=== PATIENT | female | born 1930 | race Caucasian/White ===

== ENCOUNTER 2017-09-12 18:36 | Inpatient (IN) | payer MEDICARE, OTHER ==
[~2017-09-12] VITALS: Ht 162.6 cm; Wt 77.1 kg
[2017-09-12 19:33] LABS: BASOPHILS % (AUTO) 0.9 % (0.0-5.0); HEMATOCRIT 39.1 % (36-48); LYMPHOCYTES % (AUTO) 9.9 % (21.0-51.0); MEAN CORPUSCULAR HEMOGLOBIN 31.5 pg (27.0-33.0); MEAN CORPUSCULAR HGB CONC 34.3 g/dL (32.0-36.0); MEAN CORPUSCULAR VOLUME 91.8 fL (79-99); MONOCYTES % (AUTO) 11.4 % (3.0-13.0); NEUTROPHILS % (AUTO) 76.8 % (40.0-77.0); PLATELET COUNT (AUTO) 275 K/uL (130-400); RED BLOOD CELL COUNT(AUTO) 4.26 MIL/uL (4.00-5.50); RED CELL DISTRIBUTION WIDTH 14.2 % (11.0-15.5); WHITE BLOOD COUNT (AUTO) 9.6 K/uL (4.8-10.8)
[2017-09-12 19:49] LABS: POTASSIUM 3.6 mmol/L (3.5-5.1)
[2017-09-12 20:03] LABS: ALBUMIN 3.5 g/dL (3.5-5.0); BILIRUBIN,TOTAL 0.9 mg/dL (0.2-1.0); CREATININE 0.8 mg/dL (0.5-1.5); TOTAL PROTEIN, SERUM 7.4 g/dL (6.0-8.3)
[2017-09-12 20:18] LABS: APPEARANCE,URINE CLOUDY (CLEAR); BILIRUBIN,URINE NEGATIVE (NEGATIVE); COLOR,URINE YELLOW (YELLOW); GLUCOSE, URINE (UA) 250 mg/dL (NEGATIVE); KETONES,URINE 5 mg/dL (NEGATIVE); LEUKOCYTE ESTERASE ,URINE MODERATE (NEGATIVE); NITRATE,URINE POSITIVE (NEGATIVE); OCCULT BLOOD,URINE MODERATE (NEGATIVE); PH,URINE 5.5 (5.0-8.0); PROTEIN,URINE 100 (NEGATIVE)
[2017-09-12 20:35] LABS: WBC,URINE 51-100 /HPF (0-1)
[2017-09-12 20:36] LABS: BACTERIA,URINE Moderate /HPF (None Seen)
[2017-09-12 20:37] LABS: SQUAMOUS EPITHELIAL CELL,UR Rare /LPF (0-2)
[2017-09-12] MEDS ORDERED: CEFTRIAXONE SODIUM 1 GM ONE (21:48)
[2017-09-13] VITALS (8 sets, daily range): BP systolic 90–128; BP diastolic 41–71
[2017-09-13] MEDS ORDERED: SODIUM CHLORIDE 0.9% 1000ML 1,000 ML IV ONE (00:34)
[2017-09-13] MEDS ORDERED: LIDOCAINE HCL-MPF 1% 2ML VIAL IVP PRN (01:45)
[2017-09-13] MEDS ORDERED: ONDANSETRON HCL 4 MG/2 ML VIAL IV PRN (01:45)
[2017-09-13] MEDS ORDERED: POTASSIUM CHLORIDE 20MEQ/100ML 100 ML IV PRN (01:45)
[2017-09-13] MEDS ORDERED: LACTULOSE 20 GM/30 ML UDCUP PO PRN (01:45)
[2017-09-13] MEDS ORDERED: HYDRALAZINE HCL 20 MG/ML VIAL IV PRN (01:45)
[2017-09-13] MEDS ORDERED: DiphenhydrAMINE HCL 50 MG/ML VIAL IV PRN (01:45)
[2017-09-13] MEDS ORDERED: DEXTROSE 50%-WATER 50 ML DISP.SYRIN IV PRN (01:45)
[2017-09-13] MEDS ORDERED: GLUCAGON 1MG KIT 1 MG ML IM PRN (01:45)
[2017-09-13] MEDS ORDERED: ACETAMINOPHEN 325 MG TAB PO PRN ×2 (01:45)
[2017-09-13] MEDS ORDERED: AMLO10TA2 PO (03:34)
[2017-09-13] MEDS ORDERED: ATOR10TA69 PO (03:34)
[2017-09-13] MEDS ORDERED: LOSA100T29 PO (03:34)
[2017-09-13] MEDS ORDERED: CITA10TA13 PO (03:34)
[2017-09-13] MEDS ORDERED: OXYB5TAB10 PO (03:34)
[2017-09-13] MEDS ORDERED: METO50TA18 PO (03:34)
[2017-09-13] MEDS ORDERED: INSU200I SQ (03:34)
[2017-09-13] MEDS ORDERED: LEVOFLOXACIN 500 MG/D5W 100 ML 100 ML ONE (04:44)
[2017-09-13 04:59] LABS: HEMATOCRIT 37.1 % (36-48); MEAN CORPUSCULAR HEMOGLOBIN 31.8 pg (27.0-33.0); MEAN CORPUSCULAR HGB CONC 34.9 g/dL (32.0-36.0); MEAN CORPUSCULAR VOLUME 90.9 fL (79-99); NUCLEATED RED BLOOD CELLS 2.7 % (0.0-0.19); PLATELET COUNT (AUTO) 275 K/uL (130-400); RED BLOOD CELL COUNT(AUTO) 4.08 MIL/uL (4.00-5.50); RED CELL DISTRIBUTION WIDTH 14.2 % (11.0-15.5); WHITE BLOOD COUNT (AUTO) 12.8 K/uL (4.8-10.8)
[2017-09-13 05:11] LABS: BILIRUBIN,TOTAL 0.9 mg/dL (0.2-1.0); CREATININE 0.8 mg/dL (0.5-1.5); POTASSIUM 3.3 mmol/L (3.5-5.1); TOTAL PROTEIN, SERUM 6.8 g/dL (6.0-8.3)
[2017-09-13 05:41] LABS: B-TYPE NATRIURETIC PEPTIDE 223 pg/mL (0-100)
[2017-09-13] MEDS: IPRATROPIUM 0.5 MG/2.5 ML INH IH SCH ×3 (06:32→18:53)
[2017-09-13] MEDS: POTASSIUM CHLORIDE 20 MEQ ERTAB PO PRN ×3 (07:00→17:58)
[2017-09-13] MEDS: INSULIN HUMULIN R 100 UNIT/ML 3ML SQ SCH ×4 (07:13→20:48)
[2017-09-13] MEDS: FAMOTIDINE 20MG TAB 20 MG TAB PO SCH ×2 (09:45→20:39)
[2017-09-13] MEDS ORDERED: [UNRECOGNIZED DRUG - OTHER] PO SCH (10:15)
[2017-09-13] MEDS: INSULIN LISPRO 100 UNIT/ML 3ML SQ SCH (11:30)
[2017-09-13] MEDS: AMLODIPINE BESYLATE 5 MG TAB PO SCH (12:49)
[2017-09-13] MEDS: OLOPATADINE HCL 0.1% 5ML DROPS OD SCH ×2 (13:11→20:40)
[2017-09-13] MEDS: LORATADINE/PSEUDOEPHED 5/120 MG 1 EACH TAB.SR.12H PO SCH (13:11)
[2017-09-13] MEDS: ATORVASTATIN CALCIUM 10 MG TABLET PO SCH (20:39)
[2017-09-13] MEDS: METOPROLOL TARTRATE 50 MG TAB PO SCH (20:39)
[2017-09-13] MEDS: LORAZEPAM 2 MG/ML 1 ML VIAL IVP PRN (22:06)
[2017-09-14] MEDS ORDERED: LEVOFLOXACIN 500 MG/D5W 100 ML 100 ML IV SCH
[2017-09-14] MEDS: IPRATROPIUM 0.5 MG/2.5 ML INH IH SCH ×4 (01:02→17:05)
[2017-09-14 03:43] VITALS: BP 125/57
[2017-09-14 04:35] LABS: MEAN CORPUSCULAR HEMOGLOBIN 32.1 pg (27.0-33.0); MEAN CORPUSCULAR HGB CONC 35.4 g/dL (32.0-36.0); MEAN CORPUSCULAR VOLUME 90.8 fL (79-99); PLATELET COUNT (AUTO) 258 K/uL (130-400); RED BLOOD CELL COUNT(AUTO) 3.75 MIL/uL (4.00-5.50); RED CELL DISTRIBUTION WIDTH 14.3 % (11.0-15.5); WHITE BLOOD COUNT (AUTO) 8.3 K/uL (4.8-10.8)
[2017-09-14 04:51] LABS: CREATININE 0.7 mg/dL (0.5-1.5); POTASSIUM 3.8 mmol/L (3.5-5.1)
[2017-09-14] MEDS: INSULIN HUMULIN R 100 UNIT/ML 3ML SQ SCH ×5 (06:00→21:00)
[2017-09-14 07:00] VITALS: BP 118/68
[2017-09-14] MEDS ORDERED: CEFTRIAXONE 1GM/D5W 50ML 50 ML IV SCH (09:45)
[2017-09-14] MEDS: OLOPATADINE HCL 0.1% 5ML DROPS OD SCH ×2 (10:13→21:02)
[2017-09-14] MEDS: METOPROLOL TARTRATE 50 MG TAB PO SCH ×2 (10:14→21:01)
[2017-09-14] MEDS: AMLODIPINE BESYLATE 5 MG TAB PO SCH (10:14)
[2017-09-14] MEDS: OXYBUTYNIN CHLORIDE 5 MG TABLET PO SCH (10:14)
[2017-09-14] MEDS: FAMOTIDINE 20MG TAB 20 MG TAB PO SCH ×2 (10:14→21:01)
[2017-09-14] MEDS: CITALOPRAM 20 MG TABLET PO SCH (10:14)
[2017-09-14] MEDS: CEFTRIAXONE SODIUM 1 GM IVP SCH (10:23)
[2017-09-14 11:00] VITALS: BP 121/70
[2017-09-14] MEDS: INSULIN LISPRO 100 UNIT/ML 3ML SQ SCH (11:30)
[2017-09-14] MEDS ORDERED: PNEUMOCOCCAL VACCINE POLYVALENT 0.5 ML/VIAL [PPV] IM ONE (13:15)
[2017-09-14 16:00] VITALS: BP 117/67
[2017-09-14] MEDS: LORATADINE/PSEUDOEPHED 5/120 MG 1 EACH TAB.SR.12H PO SCH (16:24)
[2017-09-14 20:05] VITALS: BP 125/70
[2017-09-14] MEDS: ATORVASTATIN CALCIUM 10 MG TABLET PO SCH (21:01)
[2017-09-14] MEDS: LORAZEPAM 2 MG/ML 1 ML VIAL IVP PRN (23:08)
[2017-09-15] VITALS (7 sets, daily range): BP systolic 126–157; BP diastolic 65–86
[2017-09-15] MEDS: IPRATROPIUM 0.5 MG/2.5 ML INH IH SCH ×5 (00:12→23:14)
[2017-09-15 06:12] LABS: CREATININE 0.7 mg/dL (0.5-1.5); POTASSIUM 3.2 mmol/L (3.5-5.1)
[2017-09-15] MEDS: INSULIN HUMULIN R 100 UNIT/ML 3ML SQ SCH ×4 (06:31→20:32)
[2017-09-15] MEDS: POTASSIUM CHLORIDE 20 MEQ ERTAB PO PRN (06:39)
[2017-09-15] MEDS: LORATADINE/PSEUDOEPHED 5/120 MG 1 EACH TAB.SR.12H PO SCH (10:33)
[2017-09-15] MEDS: METOPROLOL TARTRATE 50 MG TAB PO SCH ×2 (10:33→20:30)
[2017-09-15] MEDS: AMLODIPINE BESYLATE 5 MG TAB PO SCH (10:34)
[2017-09-15] MEDS: LOSARTAN 100 MG TABLET PO SCH (10:34)
[2017-09-15] MEDS: CEFTRIAXONE SODIUM 1 GM IVP SCH (10:34)
[2017-09-15] MEDS: FAMOTIDINE 20MG TAB 20 MG TAB PO SCH ×2 (10:35→20:29)
[2017-09-15] MEDS: CITALOPRAM 20 MG TABLET PO SCH (10:35)
[2017-09-15] MEDS: OXYBUTYNIN CHLORIDE 5 MG TABLET PO SCH (10:35)
[2017-09-15] MEDS: OLOPATADINE HCL 0.1% 5ML DROPS OD SCH ×2 (10:35→20:33)
[2017-09-15] MEDS: ENOXAPARIN SODIUM 30 MG/0.3 ML SQ SCH (10:36)
[2017-09-15] MEDS: INSULIN LISPRO 100 UNIT/ML 3ML SQ SCH (12:01)
[2017-09-15] MEDS: GUAIFENESIN-DM 200/20 MG 10 ML PO PRN ×2 (14:05→22:17)
[2017-09-15] MEDS: POTASSIUM CHLORIDE 10% ELIXIR 20 MEQ/15 ML UDCUP PO PRN ×2 (14:07→20:32)
[2017-09-15] MEDS: ATORVASTATIN CALCIUM 10 MG TABLET PO SCH (20:30)
[2017-09-16] MEDS: GUAIFENESIN-DM 200/20 MG 10 ML PO PRN ×2 (03:55→20:00)
[2017-09-16 04:00] VITALS: BP 155/90
[2017-09-16] MEDS: IPRATROPIUM 0.5 MG/2.5 ML INH IH SCH ×3 (05:07→19:05)
[2017-09-16] MEDS: INSULIN HUMULIN R 100 UNIT/ML 3ML SQ SCH ×4 (06:53→20:08)
[2017-09-16 07:16] VITALS: BP 155/69
[2017-09-16] MEDS: FAMOTIDINE 20MG TAB 20 MG TAB PO SCH ×2 (10:17→20:00)
[2017-09-16] MEDS: OLOPATADINE HCL 0.1% 5ML DROPS OD SCH ×2 (10:17→20:01)
[2017-09-16] MEDS: LORATADINE/PSEUDOEPHED 5/120 MG 1 EACH TAB.SR.12H PO SCH (10:17)
[2017-09-16] MEDS: CEFTRIAXONE SODIUM 1 GM IVP SCH (10:17)
[2017-09-16] MEDS: METOPROLOL TARTRATE 50 MG TAB PO SCH ×2 (10:17→20:00)
[2017-09-16] MEDS: CITALOPRAM 20 MG TABLET PO SCH (10:18)
[2017-09-16] MEDS: LOSARTAN 100 MG TABLET PO SCH (10:18)
[2017-09-16] MEDS: AMLODIPINE BESYLATE 5 MG TAB PO SCH (10:18)
[2017-09-16] MEDS: OXYBUTYNIN CHLORIDE 5 MG TABLET PO SCH (10:18)
[2017-09-16] MEDS: ENOXAPARIN SODIUM 30 MG/0.3 ML SQ SCH (10:18)
[2017-09-16 11:00] VITALS: BP 106/78
[2017-09-16] MEDS: INSULIN LISPRO 100 UNIT/ML 3ML SQ SCH (12:05)
[2017-09-16] MEDS: POTASSIUM CHLORIDE 10% ELIXIR 20 MEQ/15 ML UDCUP PO PRN ×2 (12:33→17:12)
[2017-09-16 15:46] VITALS: BP 123/72
[2017-09-16 19:15] VITALS: BP 123/80
[2017-09-16] MEDS: ATORVASTATIN CALCIUM 10 MG TABLET PO SCH (20:00)
[2017-09-16 23:19] VITALS: BP 115/79
[2017-09-17] MEDS: IPRATROPIUM 0.5 MG/2.5 ML INH IH SCH ×5 (00:21→23:52)
[2017-09-17 04:15] VITALS: BP 136/70
[2017-09-17 05:42] LABS: CREATININE 0.6 mg/dL (0.5-1.5); POTASSIUM 3.5 mmol/L (3.5-5.1)
[2017-09-17] MEDS: POTASSIUM CHLORIDE 10% ELIXIR 20 MEQ/15 ML UDCUP PO PRN ×2 (06:01→11:13)
[2017-09-17] MEDS: INSULIN HUMULIN R 100 UNIT/ML 3ML SQ SCH ×4 (06:01→21:00)
[2017-09-17 08:00] VITALS: BP 118/73
[2017-09-17 11:00] VITALS: BP 99/66
[2017-09-17] MEDS: CITALOPRAM 20 MG TABLET PO SCH (11:09)
[2017-09-17] MEDS: LORATADINE/PSEUDOEPHED 5/120 MG 1 EACH TAB.SR.12H PO SCH (11:10)
[2017-09-17] MEDS: AMLODIPINE BESYLATE 5 MG TAB PO SCH (11:10)
[2017-09-17] MEDS: METOPROLOL TARTRATE 50 MG TAB PO SCH ×2 (11:10→20:57)
[2017-09-17] MEDS: LOSARTAN 100 MG TABLET PO SCH (11:11)
[2017-09-17] MEDS: FAMOTIDINE 20MG TAB 20 MG TAB PO SCH ×2 (11:11→20:57)
[2017-09-17] MEDS: OXYBUTYNIN CHLORIDE 5 MG TABLET PO SCH (11:11)
[2017-09-17] MEDS: ENOXAPARIN SODIUM 30 MG/0.3 ML SQ SCH (11:12)
[2017-09-17] MEDS: CEFTRIAXONE SODIUM 1 GM IVP SCH (11:12)
[2017-09-17] MEDS: OLOPATADINE HCL 0.1% 5ML DROPS OD SCH ×2 (11:14→20:57)
[2017-09-17] MEDS: INSULIN LISPRO 100 UNIT/ML 3ML SQ SCH (12:03)
[2017-09-17 16:28] VITALS: BP 109/58
[2017-09-17 19:00] VITALS: BP 113/68
[2017-09-17] MEDS: ATORVASTATIN CALCIUM 10 MG TABLET PO SCH (20:57)
[2017-09-17 23:34] VITALS: BP 131/73
[2017-09-18 04:00] VITALS: BP 125/69
[2017-09-18] MEDS: IPRATROPIUM 0.5 MG/2.5 ML INH IH SCH ×4 (06:00→18:00)
[2017-09-18] MEDS: INSULIN HUMULIN R 100 UNIT/ML 3ML SQ SCH ×4 (06:06→21:11)
[2017-09-18 07:30] VITALS: BP 133/75
[2017-09-18] MEDS: CEFTRIAXONE SODIUM 1 GM IVP SCH (10:24)
[2017-09-18] MEDS: AMLODIPINE BESYLATE 5 MG TAB PO SCH (10:25)
[2017-09-18] MEDS: LOSARTAN 100 MG TABLET PO SCH (10:25)
[2017-09-18] MEDS: OLOPATADINE HCL 0.1% 5ML DROPS OD SCH ×2 (10:25→21:00)
[2017-09-18] MEDS: CITALOPRAM 20 MG TABLET PO SCH (10:25)
[2017-09-18] MEDS: OXYBUTYNIN CHLORIDE 5 MG TABLET PO SCH (10:25)
[2017-09-18] MEDS: METOPROLOL TARTRATE 50 MG TAB PO SCH ×2 (10:25→21:02)
[2017-09-18] MEDS: LORATADINE/PSEUDOEPHED 5/120 MG 1 EACH TAB.SR.12H PO SCH (10:25)
[2017-09-18] MEDS: FAMOTIDINE 20MG TAB 20 MG TAB PO SCH ×2 (10:25→21:02)
[2017-09-18] MEDS: ENOXAPARIN SODIUM 30 MG/0.3 ML SQ SCH (10:27)
[2017-09-18 11:00] VITALS: BP 122/71
[2017-09-18] MEDS: INSULIN LISPRO 100 UNIT/ML 3ML SQ SCH (12:09)
[2017-09-18 15:59] VITALS: BP 106/61
[2017-09-18 19:47] VITALS: BP 112/65
[2017-09-18] MEDS: ATORVASTATIN CALCIUM 10 MG TABLET PO SCH (21:02)
[2017-09-18 23:41] VITALS: BP 122/73
[2017-09-19] MEDS: IPRATROPIUM 0.5 MG/2.5 ML INH IH SCH ×3 (01:06→11:28)
[2017-09-19 04:00] VITALS: BP 129/69
[2017-09-19] MEDS: INSULIN HUMULIN R 100 UNIT/ML 3ML SQ SCH ×3 (06:09→16:30)
[2017-09-19 07:54] VITALS: BP 125/70
[2017-09-19] MEDS: METOPROLOL TARTRATE 50 MG TAB PO SCH (08:05)
[2017-09-19] MEDS: ENOXAPARIN SODIUM 30 MG/0.3 ML SQ SCH (08:05)
[2017-09-19] MEDS: FAMOTIDINE 20MG TAB 20 MG TAB PO SCH (08:05)
[2017-09-19] MEDS: AMLODIPINE BESYLATE 5 MG TAB PO SCH (08:05)
[2017-09-19] MEDS: OXYBUTYNIN CHLORIDE 5 MG TABLET PO SCH (08:06)
[2017-09-19] MEDS: LOSARTAN 100 MG TABLET PO SCH (08:06)
[2017-09-19] MEDS: CITALOPRAM 20 MG TABLET PO SCH (08:06)
[2017-09-19] MEDS: LORATADINE/PSEUDOEPHED 5/120 MG 1 EACH TAB.SR.12H PO SCH (08:06)
[2017-09-19] MEDS: OLOPATADINE HCL 0.1% 5ML DROPS OD SCH (08:06)
[2017-09-19 11:59] VITALS: BP 107/75
[2017-09-19] MEDS: INSULIN LISPRO 100 UNIT/ML 3ML SQ SCH (12:26)
[2017-09-19] MEDS: CEFTRIAXONE SODIUM 1 GM IVP SCH (15:12)
[2017-09-19 16:30] VITALS: BP 106/70
== END 2017-09-19 18:15 | DRG 689 ==
LOC: EDH 18:36 → EDHIP 22:01 → OBSVTOIN 22:01 → 4CH 09-13 00:01 → 4BH 09-14 15:21
PROVIDERS: ADMIT Internal Medicine; ATTEND Internal Medicine
DX: N39.0 Urinary tract infection, site not specified (principal); G93.41 Metabolic encephalopathy; E11.9 Type 2 diabetes mellitus without complications; E86.0 Dehydration; E78.5 Hyperlipidemia, unspecified; F03.90 Unspecified dementia, unspecified severity, without behavioral disturbance, psychotic disturbance, mood disturbance, and anxiety; F32.9 Major depressive disorder, single episode, unspecified; I10 Essential (primary) hypertension; Z90.710 Acquired absence of both cervix and uterus; Z95.0 Presence of cardiac pacemaker; Z90.49 Acquired absence of other specified parts of digestive tract; Z88.8 Allergy status to other drugs, medicaments and biological substances
CPT/HCPCS: 36415; 70450; 71045; 80048; 80053; 81001; 82550; 82948; 83880; 84132; 84484; 85025; 85027; 87088; 87186; 87804; 90732; 93005; 94640; 94664; 97039; A4218; J0696; J1650; J1815; J1956; J2060; J7030